=== PATIENT | female | born 1990 | race Caucasian/White ===

== ENCOUNTER 2017-06-21 20:33 | Emergency (ER) | payer OTHER ==
[~2017-06-21] VITALS: Ht 167.6 cm; Wt 47.0 kg
[2017-06-21 20:33] VITALS: BP 141/76; PULSE 97; RESP 16; TEMP 98.6; O2SAT 100
[2017-06-21] MEDS ORDERED: IBUP-232 PO (21:31)
[2017-06-21] MEDS ORDERED: ROBA500T PO (21:31)
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
== END 2017-06-21 21:41 | disposition home or self-care (01) ==
LOC: NEPD 20:33
DX: S16.1XXA Strain of muscle, fascia and tendon at neck level, initial encounter (principal); V43.52XA Car driver injured in collision with other type car in traffic accident, initial encounter
CPT/HCPCS: 99283